=== PATIENT | female | born 1980 | race Two or more races ===

== ENCOUNTER → 2025-01-28 | Outpatient (CLI) | payer BC, SELFPAY ==
--- NOTE | 2025-01-28 08:59 | XR_ITS ---
Examination: Bilateral hips, AP pelvis, 5 views Technique: AP, lateral views both hips, AP pelvis, 5 views Exam date and time: January 28 2025, 0909 hours INDICATIONS: Pelvic pain 1 year. FINDINGS: Moderate osteopenia Mild to moderate bilateral hip osteoarthritis No hip fractures or hip dislocations Bones of the pelvis intact with moderate sclerosis about the SI joints IMPRESSION: Mild to moderate bilateral hip osteoarthritis
== END | disposition home or self-care (01) ==
LOC: CDIM 08:55
DX: M16.0 Bilateral primary osteoarthritis of hip (principal)
CPT/HCPCS: 73523